=== PATIENT | male | born 1995 | race Caucasian/White ===

== ENCOUNTER 2016-11-22 00:54 | Emergency (ER) | payer OTHER ==
[~2016-11-22] VITALS: Ht 177.8 cm; Wt 86.4 kg
[2016-11-22 00:57] VITALS: BP 138/100; TEMP 98
[2016-11-22] MEDS ORDERED: NORCO 325 MG-51 TAB PO (02:15)
[2016-11-22 02:47] VITALS: PULSE 100
== END 2016-11-22 02:47 | disposition home or self-care (01) ==
LOC: COL.ER 00:54
DX: S43.101A Unspecified dislocation of right acromioclavicular joint, initial encounter (principal); S20.211A Contusion of right front wall of thorax, initial encounter; W20.8XXA Other cause of strike by thrown, projected or falling object, initial encounter; Y92.69 Other specified industrial and construction area as the place of occurrence of the external cause

== ENCOUNTER 2016-11-28 14:35 | Outpatient (RCR) | payer OTHER ==
[~2016-11-28 14:35] MED LIST: NORCO 325 MG-51 TAB PO
== END 2017-02-26 ==
LOC: WSOH
DX: S43.51XD Sprain of right acromioclavicular joint, subsequent encounter (principal); W20.8XXD Other cause of strike by thrown, projected or falling object, subsequent encounter; Y99.0 Civilian activity done for income or pay